=== PATIENT | male | born 1980 | race Caucasian/White ===

== ENCOUNTER 2017-03-22 20:03 | Emergency (ER) | payer MEDICAID ==
--- NOTE | 2017-03-22 20:47 | ED Physician Chart ---
ED Chief Complaint/HPI - Patient Information Date Seen:: 03/22/17 Time Seen:: 20:10 Chief Complaint:: Pt is intoxicated with ethanol History of Present Illness:: Brought in by ambulance because pt was found to be intoxicated on public [address]. Pt states that he has generalized weakness. Pt denies any bodily pain or discomfort. Pt is intoxicated and is not fully cooperative; thus, H & P are limited. Allergies:: Allergies Allergy/AdvReac Type Severity Reaction Status Date / Time No Known Allergies Allergy Verified 03/22/17 20:16 Vitals:: Vital Signs - 8 hr 03/22/17 20:10 Temp 97.9 F HR 87 RR 18 BP 130/89 O2 Sat % 98 Historian:: Patient Family MD/PCP:: unknown LMP:: N/A Review:: Nurse's Note Reviewed ED Review of Systems - Review of Systems General/Constitutional: Other (Pt does not cooperate to provide reliable info for ROS.) ED Past Medical History - Past Medical History Past Medical History: Other (Pt does not cooperate to provide info on PMH.) Family History: Other (Pt does not cooperate to provide info on FHx.) Social History: Other (Pt does not cooperate to provide info on SHx.) Surgical History: other (Pt does not cooperate to provide info on Surgical Hx.) Medication: Reviewed Family Medical History - Family Member Mother History Unknown: Yes Ethnicity: ED Physical Exam - Physical Examination General/Constitutional: Awake, Well-developed, well-nourished, Alert, No distress Other Gen/Cons comments:: Breathes comfortably but with alcoholic breath. Speaks clearly but is not fully cooperative. Head: Atraumatic Eyes: Lids, conjuctiva normal, PERRL, EOMI Skin: No rash, No ecchymosis, No lymphadenopathy ENMT: External ears, nose nl, Nasal exam nl, Oropharynx nl Neck: Nontender, Full ROM w/o pain, No nuchal rigidity, No mass, No stridor Respiratory: Nl effort/Exclusion, Clear to Auscultation, No Wheeze/Rhonchi/Rales Cardio Vascular: RRR, No murmur, gallop, rubs GI: No tenderness/rebounding/guarding, No organomegaly, No hernia, Normal BS's, Nondistended, No mass/bruits, No McBurney tenderness Extremities: No tenderness or effusion, No edema Neuro/Psych: Alert/oriented (knows his name, that he is in hospital and that it is February.), No focal deficits Other Neuro/Psych comments:: Spontaneous movements noticed in all 4 extremities. Pt does not cooperate for full neurological exam. ED Labs/Radiology/EKG Results - Lab Results Results: Laboratory Tests 03/22/17 03/22/17 03/22/17 21:20 21:20 21:20 WBC 5.8 D RBC 4.55 Hgb 15.2 Hct 45.5 D MCV 100.1 H MCH 33.3 H MCHC Differential 33.3 RDW 11.9 Plt Count 360 D MPV 6.5 Neutrophils % 42.7 Lymphocytes % 46.8 Monocytes % 8.9 Eosinophils % 1.3 Basophils % 0.3 PT 9.3 L INR 0.90 PTT (Actin FS) 25.7 L Sodium 138 Potassium 4.1 Chloride 104 Carbon Dioxide 26.4 Anion Gap 11.7 BUN 6 L Creatinine 0.5 L Est GFR ( Amer) > 60.0 Est GFR (Non-Af Amer) > 60.0 BUN/Creatinine Ratio 12.0 Glucose 99 Calcium 9.1 Total Bilirubin 0.2 L AST 23 ALT 17 Alkaline Phosphatase 92 Total Protein 8.1 Albumin 4.6 Globulin 3.5 Albumin/Globulin Ratio 1.3 Ethyl Alcohol 402 H Laboratory Last Values WBC 5.8 Th/cmm (4.8-10.8) D 03/22/17 21:20 RBC 4.55 Mil/cmm (4.30-5.70) 03/22/17 21:20 Hgb 15.2 gm/dL (12-16) 03/22/17 21:20 Hct 45.5 % (41.0-60) D 03/22/17 21:20 MCV 100.1 fl (80-99) H 03/22/17 21:20 MCH 33.3 pg (26.0-30.0) H 03/22/17 21:20 MCHC Differential 33.3 pg (28.0-36.0) 03/22/17 21:20 RDW 11.9 % (11.5-20.0) 03/22/17 21:20 Plt Count 360 Th/cmm (150-400) D 03/22/17 21:20 MPV 6.5 fl 03/22/17 21:20 Neutrophils % 42.7 % (40.0-80.0) 03/22/17 21:20 Lymphocytes % 46.8 % (20.0-50.0) 03/22/17 21:20 Monocytes % 8.9 % (2.0-10.0) 03/22/17 21:20 Eosinophils % 1.3 % (0.0-5.0) 03/22/17 21:20 Basophils % 0.3 % (0.0-2.0) 03/22/17 21:20 PT 9.3 SECONDS (9.5-11.5) L 03/22/17 21:20 INR 0.90 (0.5-1.4) 03/22/17 21:20 PTT (Actin FS) 25.7 SECONDS (26.0-38.0) L 03/22/17 21:20 Sodium 138 mEq/L (136-145) 03/22/17 21:20 Potassium 4.1 mEq/L (3.5-5.1) 03/22/17 21:20 Chloride 104 mEq/L (98-107) 03/22/17 21:20 Carbon Dioxide 26.4 mEq/L (21.0-31.0) 03/22/17 21:20 Anion Gap 11.7 (7.0-16.0) 03/22/17 21:20 BUN 6 mg/dL (7-25) L 03/22/17 21:20 Creatinine 0.5 mg/dL (0.7-1.3) L 03/22/17 21:20 Est GFR ( Amer) > 60.0 ml/min (>90) 03/22/17 21:20 Est GFR (Non-Af Amer) > 60.0 ml/min 03/22/17 21:20 BUN/Creatinine Ratio 12.0 03/22/17 21:20 Glucose 99 mg/dL (70-105) 03/22/17 21:20 Calcium 9.1 mg/dL (8.6-10.3) 03/22/17 21:20 Total Bilirubin 0.2 mg/dL (0.3-1.0) L 03/22/17 21:20 AST 23 U/L (13-39) 03/22/17 21:20 ALT 17 U/L (7-52) 03/22/17 21:20 Alkaline Phosphatase 92 U/L (34-104) 03/22/17 21:20 Total Protein 8.1 gm/dL (6.0-8.3) 03/22/17 21:20 Albumin 4.6 gm/dL (4.2-5.5) 03/22/17 21:20 Globulin 3.5 gm/dL 03/22/17 21:20 Albumin/Globulin Ratio 1.3 (1.0-1.8) 03/22/17 21:20 Ethyl Alcohol 402 mg/dL (0-10) H 03/22/17 21:20 ED Septic Shock - . Is Septic Shock (SBP<90, OR Lactate>4 mmol\L) present?: No - <6hrs of presentation: Vital Signs: Vital Signs - 8 hr 03/22/17 20:10 Temp 97.9 F HR 87 RR 18 BP 130/89 O2 Sat % 98 ED Reassessment (Disposition) - Reassessment Reassessment:: 0050 Pt has been repeatedly evaluated. Pt remains stable and comfortable. No pain. No new complaint or findings. 0705 Pt slept through the night uneventfully. Pt remains stable. Repeat ethanol level has been ordered. Case has been signed off to Dr. Ayers at about 0700 for continued care. Reassessment Condition:: Improved - Diagnosis Diagnosis:: Ethanol intoxication
[2017-03-22] MEDS ORDERED: Multivitamin Inj 10 ML, Thiamine HCL 100 MG, Magnesium Sulfate 2 GM, Folic Acid 1 MG in... IV ONE (20:51)
[2017-03-22] MEDS ORDERED: Multivitamin Inj 10 mL Vial IV ONE (21:06)
[2017-03-22] MEDS ORDERED: Thiamine 100 mg/mL 2mL Vial ONE (21:08)
[2017-03-22] MEDS ORDERED: Magnesium Sulfate 1 gm/2 mL 2mL Vial IV ONE (21:10)
[2017-03-22 21:29] LABS: % BASOPHILS 0.3 % (0.0-2.0); % EOSINOPHILS 1.3 % (0.0-5.0); % LYMPHOCYTES 46.8 % (20.0-50.0); % MONOCYTES 8.9 % (2.0-10.0); % NEUTROPHILS 42.7 % (40.0-80.0); EOSINOPHILE ABSOLUTE 0.1 Th/cmm (0.1-0.4); HEMOGLOBIN 15.2 gm/dL (12-16); LYMPHOCYTE ABSOLUTE 2.7 Th/cmm (1.5-3.0); MEAN CELL VOLUME 100.1 fl (80-99); MEAN CORPUSCULAR HEMOGLOBIN 33.3 pg (26.0-30.0); MEAN CORPUSCULAR HGB CONC 33.3 pg (28.0-36.0); MEAN PLATELET VOLUME 6.5 fl; MONOCYTE ABSOLUTE 0.5 Th/cmm (0.3-1.0); NEUTROPHILE ABSOLUTE 2.5 Th/cmm (1.8-8.0); RED BLOOD COUNT 4.55 Mil/cmm (4.30-5.70); RED CELL DISTRIBUTION WIDTH 11.9 % (11.5-20.0)
[2017-03-22 21:31] LABS: HEMATOCRIT 45.5 % (41.0-60); WHITE BLOOD COUNT 5.8 Th/cmm (4.8-10.8)
[2017-03-22 21:32] LABS: PLATELET COUNT 360 Th/cmm (150-400)
[2017-03-22 21:42] LABS: INR 0.9 (0.5-1.4); PROTHROMBIN TIME (TEST) 9.3 SECONDS (9.5-11.5)
[2017-03-22 21:44] LABS: ALB/GLOB RATIO 1.3 (1.0-1.8); ALBUMIN 4.6 gm/dL (4.2-5.5); ALKALINE PHOSPHATASE 92 U/L (34-104); ANION GAP 11.7 (7.0-16.0); BILIRUBIN,TOTAL 0.2 mg/dL (0.3-1.0); BUN - UREA NITROGEN 6 mg/dL (7-25); CALCIUM SERUM 9.1 mg/dL (8.6-10.3); CARBON DIOXIDE 26.4 mEq/L (21.0-31.0); CHLORIDE 104 mEq/L (98-107); CREATININE - SERUM 0.5 mg/dL (0.7-1.3); GFR AFRICAN-AMERICAN > 60.0 ml/min (>90); GFR NON AFRICAN-AMERICAN > 60.0 ml/min; GLUCOSE 99 mg/dL (70-105); POTASSIUM SERUM 4.1 mEq/L (3.5-5.1); SGOT 23 U/L (13-39); SGPT/ALT 17 U/L (7-52); SODIUM SERUM 138 mEq/L (136-145); TOTAL PROTEIN,SERUM 8.1 gm/dL (6.0-8.3)
== END 2017-03-23 08:15 | disposition short-term general hospital (02) ==
LOC: ER 20:03
DX: F10.129 Alcohol abuse with intoxication, unspecified (principal); R53.1 Weakness
CPT/HCPCS: 99285; 96365; 96366; 36415 ×3; 85025; 85610; 80320 ×2; 80053; J3411; J3475; J7030; X6226; X6598